=== PATIENT | male | born 1990 | race Caucasian/White ===

== ENCOUNTER 2021-05-22 13:50 | Outpatient (REF) | payer BC, SELFPAY ==
[2021-05-24 11:12] LABS: COVID-19 RT-PCR UVMMC Result Positive (Negative)
== END 2021-05-22 13:51 | disposition home or self-care (01) ==
LOC: LBN 13:50
PROVIDERS: PCP Family Medicine; Visit Provider Nurse Practitioner Family
DX: Z20.822 Contact with and (suspected) exposure to COVID-19 (principal)
CPT/HCPCS: U0003